=== PATIENT | male | born 1985 | race Caucasian/White ===

== ENCOUNTER 2025-03-14 21:17 | Emergency (ER) | payer OTHER, SELFPAY ==
--- OUTSIDE RECORDS SUMMARY | 2025-03-02 02:30 | XMS_ITS | Continuity of Care Document ---
Author Organization [facility] Address [address] [address] [place] [address] Phone Care Team Providers Care Beam Carrier Hauler Pusher Name Role Phone Martin Simms MD Unavailable Unavailable Allergies, Adverse Reactions, Alerts Substance Reaction Status Criticality Sulfa (Sulfonamide Antibiotics) HivesHives Active No Information Medications Medication Instructions Dosage Effective Dates (start - stop) Status Comments Adderall XR 30 mg capsule,extended release take 1 capsule by oral route every day in the morning upon awakening 30 MG - Active Pristiq 50 mg tablet,extended release take 1 tablet by oral route every day 50 MG - Active PROPRANOLOL HCL (unknown strength) take 1 tablet by oral route every day as needed Not Available - Active GABAPENTIN (unknown strength) take 1 capsule by oral route 3 times every day as needed Not Available - Active multivitamin tablet take 1 tablet by oral route every day 1 tablet - Active FISH OIL (unknown strength) take 1 capsule by oral route every day Not Available - Active Miralax 17 gram oral powder packet take 1 each by oral route every day 1 each - No Longer Active Procedures Procedure Date Offic/outpt E&m New Moderate Advance Directives Directive Yes / No Effective Date File Name No Information Encounters Encounter Description Practice Location Reason(s) For Visit Diagnoses Date Provider Providers Copied on Encounter Offic/outpt E&m New Moderate [facility], [address] [address], [place], [place], [id number], [place] tel:[phone] [facility] GI Symptoms or Concerns (chief complaint) Rectal bleedingChronic idiopathic constipation 5 Mendez Salazar. [address], [place], [place], [id number] , [place]. tel:[phone] Referring Provider: Referral Self, USE FOR SELF REFERRALS. [facility], [address] [address], [place], [place], [id number], [place] tel:[phone] [facility] No Information Jordy Rea. [address], [place], [place], [id number] , [place]. tel:[phone] Family History Family Member Type Diagnosis Age At Onset Brother Problem Asthma Father Problem Colon polyps Mother Problem Diabetes mellitus type 2 Father Problem Squamous cell carcinoma of S kin Mother Problem Colon polyps Brother Problem Alcoholism Immunizations Vaccine Date Status Comments tetanus toxoid, reduced diphtheria toxoid, and acellular pertussis vaccine, adsorbed administered Note: [facility] b i-directional interface ; Source: Other Registry SARS-COV-2 (COVID-19) vaccin e, mRNA, spike protein, LNP, preservative free, 100 mcg/0.5mL dose or 50 mcg/0.25mL dose administered Note: [facility] bi -directional interface ; Source: Other Registry Afluria Qd administered Note: [facility] bi-directional interface ; Source: Other Registry SARS-COV-2 (COVID-19) vaccin e, vector non-replicating, recombinant spike protein-Ad26, preservative free, 0.5 mL administered Note: [facility] bi- directional interface ; Source: Other Registry Afluria Qd administered Note: [facility] bi-directional interface ; Source: Other Registry Afluria Qd administered Note: [facility] bi-directional interface ; Source: Other Registry tetanus toxoid, reduced diphtheria toxoid, and acellular pertussis vaccine, adsorbed administered Note: [facility] b i-directional interface ; Source: Other Registry Influenza, split virus, trivalent, injectable, contains preservative administered Note: [facility] bi-direct ional interface ; Source: Other Registry Influenza, split virus, trivalent, injectable, contains preservative administered Note: [facility] bi-direct ional interface ; Source: Other Registry Influenza, split virus, trivalent, injectable, contains preservative administered Note: [facility] bi-direct ional interface ; Source: Other Registry Influenza, split virus, trivalent, injectable, contains preservative administered Note: [facility] bi-direct ional interface ; Source: Other Registry tetanus and diphtheria toxoi ds, adsorbed, preservative free, for adult use (5 Lf of tetanus toxoid and 2 Lf of diphtheria toxoid) administered Note: [facility] C bi- directional interface ; Source: Other Registry meningococcal polysaccharide vaccine (MPSV4) administered Note: [facility] bi-direct ional interface ; Source: Other Registry Influenza, split virus, trivalent, injectable, contains preservative administered Note: [facility] bi-direct ional interface ; Source: Other Registry Payers Payer name Insurance type Covered alliance party ID [place] douglas(s) [facility] [id number] Social History Type Description Quantity Date Captured Comments Alcohol Use Details Caffeine Use Details Unknown Tobacco Use Status Current non-smoker Smoking Status Never smoker Non-Smoking Tobacco Use Details : No Details Available : No Details Available Sex Male Vital Signs Date / Time: Height Weight BMI Pulse Rate Blood Pressure Temperature Respiratory Rate Body Surface Area Head Circumference Head Circ. Percentile Wt./Bill. Percentile BMI percentile Pulse Ox Inhaled Ox 8:33 AM 72.00 in 109.316 kg (241.00 lbs) 32.6 9 kg/m eter (2) 77 /min 114/75 mm[Hg] Chief Complaint And Reason For Visit From encounter dated 03/02/2025 08:30'. GI Symptoms or Concerns (chief complaint). Description: 39-year-old male with history of anxiety/depression, who presents for evaluation of constipation and rectal bleeding. He reports that he did have very severe constipation problem in the past which improved with probiotics. Currently he does have type IV stool per [place] stool chart most of the days except over the weekend he does not have bowel movements. Reports incomplete evacuation sensation all the time. Yesterday despite not having constipation, he noticed large amount of bright red blood per rectum and blood clots. This triggered him to schedule this appointment.He reports that he has been following a much healthier lifestyle wit h increasing physical activity, losing 40 pounds over the past year. He has been drinking adequate amount of water daily. He does not think that he is eating enough high-fiber diet. He has started Metamucil fiber supplement, 1 teaspoon daily however increasing that to 2 teaspoons daily was not tolerated.He did try a bowel cleanse in early January but despite that he did not feel complete evacuation.Appetite is normal and no constitutional symptoms.No family history of colorectal cancer. Reason For Referral Reason For Referral No Information History Of Present Illness Encounter Date Complaint History Of Prese nt Illness GI Symptoms or Concerns 39-year- old male with history of anxiety/depression, who presents for evaluation of constipation and rectal bleeding. He reports that he did have very severe constipation problem in the past which improved with probiotics. Currently he does have type IV stool per [place] stool chart most of the days except over the weekend he does not have bowel movements. Reports incomplete evacuation sensation all the time. Yesterday despite not having constipation, he noticed large amount of bright red blood per rectum and blood clots. This triggered him to schedule this appointment.He reports that he has been following a much healthier lifestyle with increasing physical activity, losing 40 pounds over the past year. He has been drinking adequate amount of water daily. He does not think that he is eating enough high-fiber diet. He has started Metamucil fiber supplement, 1 teaspoon daily however increasing that to 2 teaspoons daily was not tolerated.He did try a bowel cleanse in early January but despite that he did not feel complete evacuation.Appetite is normal and no constitutional symptoms.No family history of colorectal cancer. Functional Status Date Functional Assessmen t No Information Instructions Date Instruction Additional Infor tatyana It was nice to meet you Corky!I would recommend to continue with adequate water intake and physical activity.Switch Metamucil fiber to either Citrucel or Benefiber, 1 tablespoon with large glass of water daily.Start with high-fiber diet.Add MiraLAX laxative 1 capful daily. You might adjust the dose if needed to half capful and up to 1 capful twice daily if needed.We will refer you for a colonoscopy to assess for the source of rectal bleeding.With the above adjustment, if you continue to have problems with constipation and feeling incomplete evacuation, please schedule a follow-up and we will consider further adjustment of your bowel regimen.At the time of your follow-up with your primary care doctor next week, I would advise to have your thyroid checked and electrolytes (specifically to rule out hypercalcemia causing constipation), and to check for celiac disease (TTG IgA and total IgA). Related to Chronic idiopathic constipation High Fiber Diet Related to Chron ic idiopathic constipation Assessments Type Assessment Date assessment Rectal bleeding assessment Chronic idiopathic constipation impression 39-year-old male wit h chronic mild constipation, and couple episodes of rectal bleeding.In regards to his constipation, differential diagnosis include lifestyle related/diet related, chronic idiopathic constipation, IBS-C, less likely defecation disorder. In regards to rectal bleeding, most likely this is related to internal hemorrhoids however other etiologies such as colorectal lesions, inflammatory etiology, to be ruled out. Patient Care Teams Name Effective Dates (start - stop) Status Members No Information
--- OUTSIDE RECORDS SUMMARY | 2025-03-02 02:30 | XMS_ITS | Continuity of Care Document ---
Author Organization [facility] Address [address] [address] [place] [address] Phone Care Team Providers Care Nursery Hand Name Role Phone Martin Simms MD Unavailable [...] Moderate [facility], [address] [address], [place], [place], [id number], [place] tel:[phone] [facility] GI Symptoms or Concerns (chief complaint) Rectal bleedingChronic idiopathic constipation 5 Mendez Salazar. [address] [facility], [place], [place], [address] , [place]. tel:[phone] Referring Provider: Referral Self, USE FOR SELF REFERRALS. [facility], [address] [address], [place], [place], [address], [place] tel:[phone] [facility] No Information Jordy Rea. [address] [facility], [place], [place], [id number] , [place]. tel:[phone] Family History Family Member Type Diagnosis Age [...] Registry Payers Payer name Insurance type Covered republican ID Paola douglas(s) [facility] [id number] Social History Type Description Quantity Date Captured [...] he does have type IV stool per [place] stool chart most of the days except [...] he does have type IV stool per [place] stool chart most of the days except [...]
--- OUTSIDE RECORDS SUMMARY | 2025-03-14 21:18 | XMS_ITS | Clinical Summary ---
Author Organization [facility] Address [address] , [address] [place] [address] Phone Care Team Providers Care Solid Waste Disposal Manager Name Role Phone [facility] Unavailable Unava ilable Conditions or Problems Problem Name Problem Code Onset Date Status Entry Date Provider Comment Standard Description Annotate Leg weakness, bilateral 071778003 (SNOMED CT) Active Anirudh Valencia MD Paresis of lower extremity Leg pain, bilateral 72551325 (SNOMED CT) Active Anirudh Valencia MD Pain in lower limb Radicular syndrome of lower limbs 21267778 (SNOMED CT) Active Anirudh Valencia MD Radicular syndrome of lower limbs Medications No information available. Medications Administered No information available. Allergies, Adverse Reactions, Alerts No information available. Results Date Name Value Unit Range Flag Description Internal Other: Authorizatio n - OBS [email or web address] Yes Authoriza tion: Release of Information - Authorize [facility] - Payment and Healthcare Operations ROIAUTHOTHER Yes Authoriz ation: Release of Information - Authorize Others/Insurance - Payment and Healthcare Operations HIECONSENT Yes Consent To Release information to the Health Information Exchange (HIE) [email or web address] Yes Authorizat ion: Authorization for [facility] to leave messages, voicemail, send text messages, send emails AUTHRELHCARE Yes Authoriz ation: Release/Retrieval of Information to/from Healthcare Facilities, Pharmacy Benefit Payers and Providers [email or web address] Yes Authoriz ation: Notice of privacy practices AUTHBENEFIT Yes Authoriza tion: Assignment of Benefits and Payment Agreement Plan of Care No information available. Procedures Code Procedure Name Date Entry Date CPT-06293 Nerve Conduction 13 or more studies 10/28 CPT-89289 EMG with NCS (5+ muscles) - 2 limbs 10/28 Vital Signs No information available. Immunizations No information available. Advance Directives No information available.
--- OUTSIDE RECORDS SUMMARY | 2025-03-14 21:19 | XMS_ITS | Clinical Summary ---
Author Organization [facility] Address [address] [place] [id number] Care Team Providers Care Saloon Keeper Name Role Phone Saman Barraza MD Primary Care Provider Allergies Active Allergy Reactions Criticality Noted Date Comments Sulfa Antibiotics Rash Low 01/04/2025 Encounters Date Type Department Care Team Description 01/04/2025 2:13 PM CDT - 01/04/2025 6:[address] [facility] Emergency Dept [address] [place] [id number] Chris Mcnair MD Febrile illness, acute (Primary Dx) Discharge Disposition: Home or Self Care 01/04/2025 Travel from Last 3 Months Social History Tobacco Use Types Packs/Day Years Used Date Smoking Tobacco: Never Assessed Sex and Gender Information Value Date Recorded Sex Assigned at Not on file Legal Sex Male 3:22 AM [employer] Gender Identity Not on file Sexual Orientation Not on file Last Filed Vital Signs Vital Sign Reading Time Taken Comments Blood Pressure 140/90 01/04/2025 5:46 PM CDT Pulse 79 01/04/2025 5:46 PM CDT Temperature 36.7 C (98.1 F) 01/04/2025 11:46 AM CDT Respiratory Rate 16 01/04/2025 5:46 PM CDT Oxygen Saturation 100% 01/04/2025 5:46 PM CDT Inhaled Oxygen Concentration - - Weight 115.4 kg (254 lb 6.6 oz) 025 11:46 AM CDT Height 182.9 cm (6') 01/04/2025 11:46 AM CDT Body Mass Index 34.5 01/04/2025 11:46 AM CDT Plan of Treatment Health Maintenance Due Date Last Done Comments ADVANCE CARE PLANNING 1985 ANNUAL REVIEW OF HM ORDERS 1985 PHQ-2 (once per calendar year) 2024 COVID-19 VACCINE (3 - season) 2025 07/01/2021, 08/09/2020 INFLUENZA VACCINE (#1) 2025 , 03/07/2021, 01/28/2020, Additional history exists YEARLY PREVENTIVE VISIT 03/06/2026 03/06/20, 12/23/2021, 12/21/2020, Additional history exists DIABETES SCREENING 01/05/2028 01/04/2025 DTAP/TDAP/TD VACCINE (5 - Td or Tdap) 07/19/2034 07/19/2024, 03/11/2014, 02/13/2005, Additional history exists ZOSTER VACCINE (1 of 2) 08/04/2035 HEPATITIS B VACCINE Completed 04/18/1996, 12/02/1995, 10/13/1995 MENINGITIS VACCINE Aged Out 07/28/2003 No longer eligible based on patient's age to complete this topic HEPATITIS C SCREENING Completed 04/26/2013 HIV SCREENING Completed 04/26/2013 HPV VACCINE (No Doses Required) Completed PNEUMOCOCCAL VACCINE: PEDIATRICS (0 to 5 YEARS) AND AT-RISK PATIENTS (6 to 49 YEARS) Aged Out No longer eligible based on patient's age to complete this topic Procedures Procedure Name Priority Date/Time Associated Diagnosis Comments XR CHEST 2 VIEWS STAT 01/04/2025 4:46 PM CDT ROUTINE UA WITH MICROSCOPIC REFLEX TO CULTURE STAT 01/04/2025 4:32 PM CDT CBC WITH PLATELETS & DIFFERENTIAL STAT 01/04/2025 2:58 PM CDT GROUP A STREPTOCOCCUS PCR THROAT SWAB STAT 01/04/2025 2:58 PM CDT CBC WITH PLATELETS AND DIFFERENTIAL STAT 01/04/2025 2:58 PM CDT TICK-BORNE DISEASE PANEL (NON-LYME) BY PCR STAT 01/04/2025 2:58 PM CDT LYME DISEASE TOTAL ANTIBODIES WITH REFLEX TO CONFIRMATION STAT 01/04/2025 2:58 PM CDT COMPREHENSIVE METABOLIC PANEL (LIMITED OCCURRENCES) STAT 01/04/2025 2:58 PM CDT INFLUENZA A/B, RSV AND SARS-COV2 PCR STAT 01/04/2025 11:47 AM CDT from Last 3 Months Results * XR Chest 2 Views (01/04/2025 4:46 PM CDT) Anatomical Region Laterality Modality Chest Computed Radiogr aphy 01/04/2025 4:46 PM CDT Impressions 01/04/2025 5:00 PM CDT IMPRESSION: No cardiopulmonary abnormality. The lateral view shows mild midthoracic vertebral compression deformities which are unchanged since 2014. Narrative 01/04/2025 5:00 PM CDT EXAM: XR CHEST 2 VIEWS LOCATION: [facility] DATE: 01/04/2025 INDICATION: cough COMPARISON: Chest and rib x-ray February 13, 2024 and PA and lateral series June 09, 2014. Procedure Note Pavel Chinchilla MD - 01/04/2025 EXAM: XR CHEST 2 VIEWS LOCATION: [facility] DATE: 01/04/2025 INDICATION: cough COMPARISON: Chest and rib x-ray February 13, 2024 and PA and lateral seriesJan2014. IMPRESSION: No cardiopulmonary abnormality. The lateral view shows mildmidthoracic vertebral compression deformities which are unchanged [id number]. Chris Mcnair MD IMG DIAGNOSTIC IMAGING ORDERABLES Final Result * (ABNORMAL) UA with Microscopic reflex to Culture (01/04/2025 4:32 PM CDT) Color Urine Straw Colorless, Straw, Light Yellow, Yellow 01/04/2025 4:56 PM CDT [facility] Appearance Urine Clear Clear 01/05/20 4:56 PM CDT [facility] Glucose Urine Negative Negative mg/dL 01/04/2025 4:56 PM CDT [facility] Bilirubin Urine Negative Negative 4:56 PM CDT [facility] Ketones Urine Trace(A) Negative mg/dL 01/04/2025 4:56 PM CDT [facility] Specific [place] Urine 1.004 1.003 - 1.035 01/04/2025 4:56 PM CDT [facility] Blood Urine Negative Negative 01/04/2025 4:56 PM CDT [facility] pH Urine 6.0 5.0 - 7.0 01/04/2025 4:56 PM CDT [facility] Protein Albumin Urine Negative Negative mg/dL 01/04/2025 4:56 PM CDT [facility] Urobilinogen Urine Normal Normal mg/dL 01/04/2025 4:56 PM CDT [facility] Nitrite Urine Negative Negative 01/04/2025 4:56 PM CDT [facility] Leukocyte Esterase Urine Negative Negative 01/04/2025 4:56 PM CDT [facility] RBC Urine <1 <=2 /HPF 01/04/2025 4:56 PM CDT [facility] WBC Urine 0 <=5 /HPF 01/04/2025 4:56 PM CDT [facility] Urine URINE SPECIMEN OBTAINED BY CLEAN CATCH PROCEDURE / Unknown Non-blood Collection / Unknown 01/04/2025 4:32 PM CDT 01/04/2025 4:40 PM CDT Narrative [facility] - 01/04/2025 4:56 PM CDT Urine Culture not indicated us Chris Mcnair MD LAB - URINE ORDERABLES Final Result LABORATORY [facility] [address] Lab (1st floor, no room number) [place] [address], [facility] * Tick-Borne Disease Panel (Non-Lyme) by PCR (01/04/2025 2:58 PM CDT) Anaplasma phagocytophilum by PCR Not Detected Not Detected 01/05/2025 10:02 AM CDT [facility] Babesia species by PCR Not Detected Not Detected 01/05/2025 10:02 AM CDT [facility] Ehrlichia species by PCR Not Detected Not Detected 01/05/2025 10:02 AM CDT [facility] Blood BLOOD SPECIMEN / Unknown Venipuncture / Unknown 01/04/2025 2:58 PM CDT 01/04/2025 3:11 PM CDT Narrative [facility] - 01/05/2025 10:02 AM CDT This test was developed and its performance characteristics determined by the [facility] at [facility]. It has not been cleared or approved by the US Food and Drug Administration. This test was performed in a CLIA-certified laboratory and is intended for clinical purposes. A negative result does not rule out the presence of PCR inhibitors in the patient specimen or test-specific nucleic acid in concentrations below the level of detection by this test. us Chris Mcnair MD LAB - BLOOD ORDERABLES Final Result [facility] Inf. Diseases Diag. Lab [address] [facility], [address] [place] [phone] * CBC with platelets and differential (01/04/2025 2:58 PM CDT) WBC Count 9.17 4.00 - 11.00 10e3/uL 01/04/2025 4:04 PM CDT [facility] RBC Count 5.49 4.40 - 5.90 10e6/uL 01/04/2025 4:04 PM CDT [facility] Hemoglobin 16.6 13.3 - 17.7 g/dL 01/04/2025 4:04 PM CDT [facility] Hematocrit 45.9 40.0 - 53.0 % 01/04/2025 4:04 PM CDT [facility] MCV 83.6 78.0 - 100.0 fL 01/04/2025 4:04 PM CDT [facility] MCH 30.2 26.5 - 33.0 pg 01/04/2025 4:04 PM CDT [facility] MCHC 36.2 31.5 - 36.5 g/dL 01/04/2025 4:04 PM CDT [facility] RDW 11.9 10.0 - 15.0 % 01/04/2025 4:04 PM CDT [facility] Platelet Count 256 150 - 450 10e3/uL 01/04/2025 4:04 PM CDT [facility] % Neutrophils 71.4 % 01/04/2025 4:04 PM CDT [facility] % Lymphocytes 17.9 % 01/04/2025 4:04 PM CDT [facility] % Monocytes 9.9 % 01/04/2025 4:04 PM CDT [facility] % Eosinophils 0.1 % 01/04/2025 4:04 PM CDT [facility] % Basophils 0.4 % 01/04/2025 4:04 PM CDT [facility] % Immature Granulocytes 0.3 % 01/04/2025 4:04 PM CDT [facility] NRBCs per 100 WBC 0.0 <1.0 /100 025 4:04 PM CDT [facility] Absolute Neutrophils 6.54 1.60 - 8.30 10e3/uL 01/04/2025 4:04 PM CDT [facility] Absolute Lymphocytes 1.64 0.80 - 5.30 10e3/uL 01/04/2025 4:04 PM CDT [facility] Absolute Monocytes 0.91 0.00 - 1.30 10e3/uL 01/04/2025 4:04 PM CDT [facility] Absolute Eosinophils <0.03 0.00 - 0.70 10e3/uL 01/04/2025 4:04 PM CDT [facility] Absolute Basophils 0.04 0.00 - 0.20 10e3/uL 01/04/2025 4:04 PM CDT [facility] Absolute Immature Granulocytes 0.03 <=0.40 10e3/uL 01/04/2025 4:04 PM CDT [facility] Absolute NRBCs <0.03 10e3/uL 01/04/2025 4:04 PM CDT [facility] Blood BLOOD SPECIMEN / Unknown Venipuncture / Unknown 01/04/2025 2:58 PM CDT 01/04/2025 3:52 PM CDT us Chris Mcnair MD LAB - BLOOD ORDERABLES Final Result [facility] [address] Lab (1st floor, no room number) [place] [phone] * Group A Streptococcus PCR Throat Swab (01/04/2025 2:58 PM CDT) Pathologist [facility] Group A strep by PCR Not Detected Not Detected 01/04/2025 3:35 PM CDT LABORATORY Swab STRUCTURE OF ANTERIOR REGION OF NECK / Unknown Non-blood Collection / Unknown 01/04/2025 2:58 PM CDT 01/04/2025 3:03 PM CDT [facility] LABORATORY - 01/04/2025 3:35 PM CDT The Xpert Xpress Strep A test, performed on the [employer], is a rapid, qualitative in vitro diagnostic test for the detection of Streptococcus pyogenes (Group A -hemolytic Streptococcus, Strep A) in throat swab specimens from patients with signs and symptoms of pharyngitis. The Xpert Xpress Strep A test can be used as an aid in the diagnosis of Group A Streptococcal pharyngitis. The assay is not intended to monitor treatment for Group A Streptococcus infections. The Xpert Xpress Strep A test utilizes an automated real-time polymerase chain reaction (PCR) to detect Streptococcus pyogenes DNA. us Chris Mcnair MD LAB - MICRO GENERAL ORD ERABLES Final Result [facility] [address] [facility] Lab (1st floor, no room number) [place] [phone] * Comprehensive Metabolic Panel (Limited Occurrences) (01/04/2025 2:58 PM CDT) Pathologist [facility] Sodium 136 135 - 145 mmol/L 01/04/2025 3:30 PM CDT LABORATORY Potassium 4.3 3.4 - 5.3 mmol/L 01/04/2025 3:30 PM CDT LABORATORY Carbon Dioxide (CO2) 23 22 - 29 mmol/L 01/04/2025 3:30 PM CDT LABORATORY Anion Gap 11 7 - 15 mmol/L 01/04/2025 3:30 PM CDT LABORATORY Urea Nitrogen 13.1 6.0 - 20.0 mg/dL 01/04/2025 3:30 PM CDT LABORATORY Creatinine 1.11 0.67 - 1.17 mg/dL 01/04/2025 3:30 PM CDT [facility] GFR Estimate 87 >60 mL/min/1.7 3m2 01/04/2025 3:30 PM CDT LABORATORY Comment:eGFR calculated us2020 CKD-EPI equation. Calcium 9.0 8.8 - 10.4 mg/dL 01/04/2025 3:30 PM CDT LABORATORY Chloride 102 98 - 107 mmol/L 01/04/2025 3:30 PM CDT LABORATORY Glucose 93 70 - 99 mg/dL 01/04/2025 3:30 PM CDT [facility] Alkaline Phosphatase 53 40 - 150 U/L 01/04/2025 3:30 PM CDT LABORATORY AST 25 0 - 45 U/L 01/04/2025 3:30 PM CDT LABORATORY ALT 38 0 - 70 U/L 01/04/2025 3:30 PM CDT LABORATORY Protein Total 7.3 6.4 - 8.3 g/dL 01/04/2025 3:30 PM CDT LABORATORY Albumin 4.5 3.5 - 5.2 g/dL 01/04/2025 3:30 PM CDT LABORATORY Bilirubin Total 0.7 <=1.2 mg/dL 01/04/2025 3:30 PM CDT LABORATORY Blood BLOOD SPECIMEN / Unknown Venipuncture / Unknown 01/04/2025 2:58 PM CDT 01/04/2025 3:03 PM CDT us Chris Mcnair MD LAB - BLOOD ORDERABLES Final Result LABORATORY [facility] [address] Lab (1st floor, no room number) [place] [address], [facility] * Lyme Disease Total Antibodies with Reflex to Confirmation (01/04/2025 2:58 PM CDT) Lyme Disease Antibodies Total 0.10 <0.90 01/05/2025 11:16 AM CDT SPECIALTY CORE/PROT/ENDO Comment:Non-reactive, Absenc e of detectable Borrelia burgdorferi antibodies. A non-reactive result does not exclude the possibility of Borrelia burgdorferi infection. If early Lyme disease is suspected, a second sample should be collected and tested 2 to 4 weeks later. Blood BLOOD SPECIMEN / Unknown Venipuncture / Unknown 01/04/2025 2:58 PM CDT 01/04/2025 3:03 PM CDT us Chris Mcnair MD LAB - BLOOD ORDERABLES Final Result [facility]PROT[facility]Prot[facility]End[facility] [address] [facility] [address] Building, Room [phone] * Influenza A/B, RSV and SARS-CoV2 PCR (COVID-19) Nasopharyngeal (01/04/2025 11:47 AM CDT) [facility] Influenza A PCR Negative Negative 01/04/2025 1:47 PM CDT LABORATORY Influenza B PCR Negative Negative 01/04/2025 1:47 PM CDT LABORATORY RSV PCR Negative Negative 01/04/2025 1:47 PM CDT [facility] SARS CoV2 PCR Negative Negative 01/04/2025 1:47 PM CDT [facility] Comment:NEGATIVE: SARS-CoV-2 (COVID-19) RNA not detected, presumed negative. Swab NASOPHARYNGEAL STRUCTURE / Unknown Non-blood Collection / Unknown 01/04/2025 11:47 AM CDT 01/04/2025 12:18 PM CDT [facility] LABORATORY - 01/04/2025 1:47 PM CDT Testing was performed using the Xpert Xpress CoV2/Flu/RSV Assay on the [employer] GeneXpert Instrument. This test should be ordered for the detection of SARS- CoV2, influenza, and RSV viruses in individuals with signs and symptoms of respiratory tract infection. This test is for in vitro diagnostic use under the [place] FDA for laboratories certified under CLIA to perform high or moderate complexity testing. This test has been [place] FDA cleared. A negative result does not rule out the presence of PCR inhibitors in the specimen or target RNA in concentration below the limit of detection for the assay. If only one viral target is positive but coinfection with multiple targets is suspected, the sample should be re-tested with another FDA cleared, approved, or authorized test, if coninfection would change clinical management. This test was validated by the [facility]. These laboratories are certified under the Clinical Laboratory Improvement Amendments of 1988 (CLIA-88) as qualified to perfom high complexity laboratory testing. Chris Mcnair MD LAB - MICRO GENERAL ORD ERABLES Final Result [facility] [address] [facility] Lab (1st floor, no room number) [place] [address], [facility] from Last 3 Months Insurance [facility] [employer] Care Teams Saloon Keeper Relationship Specialty [place] [id number] [place] [address] PCP - General 01/04/25
--- OUTSIDE RECORDS SUMMARY | 2025-03-14 21:19 | XMS_ITS | Clinical Summary ---
Author Organization [facility] Address [address] [place] [id number] Care Team Providers Care Roll Skinner Name Role Phone Saman Barraza MD Primary Care Provider Willie Muñoz Unavailable [phone] Allergies Active Allergy Reactions Criticality Noted Date Comments Sulfa (Sulfonamide Antibiotics) Hives 01/10 Medications gabapentin (NEURONTIN) 300 mg capsule Take 300 mg by mouth 2 times daily. 1 Active durable medical equipment (DME)Indications :Chronic right-sided back pain, unspecified back location home cervical traction unit that provides greater than 20lbs of pull/force 1 Each 2 Active Pristiq 50 mg Extended-Release tablet Take 50 mg by mouth once daily in the morning. 5 Active Adderall XR 15 mg Extended-Release capsule Take 15 mg by mouth 2 times daily at 7 AM and Noon. 5 Active CPAPIndications: ASHLEY on CPAP CPAP, heated humidifier, mask, headgear, filters and tubing. For home use. Pressure: 9cmH2O Length of Need: 99 1 Each 5 Active Auvelity 45-105 mg tablet TAKE 1 TABLET BY MOUTH 2 TIMES A DAY* 4 03/06/20 25 Discontinu ed(*Med complete/R egimen complete/L evel of care change) CPAPIndications: ASHLEY on CPAP CPAP, heated humidifier, mask, headgear, filters and tubing. For home use. Pressure: 9cmH2O Length of Need: 99 1 Each 4 03/14/20 Discontinu ed(Reorder (E-cancel not sent)) busPIRone (BUSPAR) 10 mg tablet Take 1 Tablet by mouth two times daily. 5 03/06/20 Discontinu ed(*Med complete/R egimen complete/L evel of care change) Active Problems Problem Noted Date Diagnosed Date Obesity (BMI 30.0-34.9) 07/19/2024 Palpitations 07/19/2024 Neck pain, chronic 10/21/2023 Insomnia, idiopathic 01/07/2023 Low testosterone 12/23/2021 Chronic back pain 07/03/2021 ASHLEY on CPAP 04/04/2016 Overview (12/28/2019): Heavy snoring ADHD, predominantly inattentive type 09/12/2008 Social phobia 02/20/2008 Major depressive disorder, recurrent episode, mo derate 02/20/2008 Overview (10/10/2020): Isaura morales at [facility] Obsessive compulsive disorder 01/29/2006 Resolved Problems Problem Noted Date Diagnosed Date Resolved Date Elevated blood pressure read ing without diagnosis of hypertension 07/19/2024 03/06/2025 Encounters Date Type Department Care Team Description 03/08/2025 Orders Only [address] [address] Saman Barraza MD 1 scan: (1-Ord) 03/06/2025 03/06/2025 3:45 PM CDT Office Visit [address] [address] Saman Barraza MD Sinus Problem; Physical (Non fasting/); Immunization/Injectio n 03/05/2025 Travel 02/17/2025 Nurse Triage [address] [address] Saman Barraza MD Chest Pain/problem 01/04/2025 Nurse Triage [address] [address] Saman Barraza MD Headache from Last 3 Months Immunizations Immunization Administration Dates Next Due AMB Influenza, IIV3 (Age >=3 years)(Flu Clinic Only) 03/17/2008 COVID-19 vaccine (Moderna Taurus annalise 50mcg/0.25mL) PF, MDV 07/01/2021 Hepatitis B (Peds) 04/18/1996,12/02/1995, 996 INFLUENZA, IIV3 PF (AGE >= 6 MO) 03/06/2025,07/09 Influenza, IIV3 (Age >=3 years) 02/08/20 19,03/30/2014,03/09/2007,03/18 Influenza, IIV4 03/07/2021,01/28/2020,05/18/2017 MMR 11/15/1996,10/31/1986 Meningococcal Vaccine (Menomune) 07/28/2003 Td (Age >=7 Years) 02/13/2005,11/15/1996 Tdap 07/19/2024,03/11/2014 Family History Medical History Relation Name Comments Allergies Brother CJ Asthma Brother CJ Cancer Father skin cancer Good Health Father Hypertension Father Alcohol/Drug Maternal Grandfather Alcohol/Drug Maternal Grandmother Diabetes Mother Hypertension Mother Psychiatric illness Mother depressi on/worrier Alcohol/Drug Paternal Grandfather Alcohol/Drug Paternal Grandmother Relation Name Status Comments Brother CJ Father Maternal Grandfather Maternal Grandmother Mother Paternal Grandfather Paternal Grandmother Social History Tobacco Use Types Packs/Day Years Used Date Smoking Tobacco: Never Smokeless Tobacco: Never Tobacco Cessation:Counseling Given: Yes Alcohol Use Standard Drinks/Week Comments Yes 0 (1 standard drink = 0.6 oz pur e alcohol) occ PHQ-2 Answer Date Recorded PHQ-2 TOTAL SCORE 2 03/06/2025 Social Connections Answer Date Recorded Do you often feel lonely or isolated from those around you? 0 07/19/2024 Alcohol Use Answer Date Recorded How often do you have a drink containing alcohol ? 1 03/06/2025 How many drinks containing a lcohol do you have on a typical day when you are drinking? 0 03/06/2025 How often do you have five or more drinks on one occasion? 0 03/06/2025 Financial Resource Strain Answer Date R ecorded Difficulty of Paying Living Expenses 3 07/19/2024 Difficulty of Paying Living Expenses Not on file 07/19/2024 Food Insecurity Answer Date Recorded Do you worry your food will run out before you are able to buy more? 1 07/19/2024 Transportation Needs Answer Date Record ed Does lack of transportation keep you from medica l appointments? 1 07/19/2024 Does lack of transportation keep you from work, meetings or getting things that you need? 1 07/19/2024 Housing Stability Answer Date Recorded What is your housing situation today? 1 07/19/2024 Utilities Answer Date Recorded Do you have trouble paying f or utilities (for example, heat, electricity, water, phone)? 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 Gender Identity Not on file Sexual Orientation Not on file Obstetrics History Last Filed Vital Signs Vital Sign Reading Time Taken Comments Blood Pressure 110/60 03/06/2025 3:42 PM CDT Pulse 68 03/06/2025 3:42 PM CDT Temperature 36.9 C (98.4 F) 03/06/2025 3:42 PM CDT Respiratory Rate 22 02/13/2024 2:51 PM CDT Oxygen Saturation 99% 07/19/2024 8:05 AM CDT Inhaled Oxygen Concentration - - Weight 106.1 kg (234 lb) 03/06/2025 3:42 PM CDT Height 182.9 cm (6') 03/06/2025 3:42 PM CDT Body Mass Index 31.74 03/06/2025 3:42 PM CDT Plan of Treatment Health Maintenance Due Date Last Done Comments HPV series for age 9-45 (1 - 3-dose SCDM series) 2012 BMI (ht and wt on same day) for age 18+ 03/06/2026 03/06/2025, 09/16/2023, 01/31/2022, Additional history exists Depression screening for age 12+ 03/06/2026 03/06/2025, 01/07/2023, 12/23/2021, Additional history exists Lipids for age 35-44 03/06/2030 03/06/2025, 01/07/2023, 12/23/2021, Additional history exists Tetanus booster 07/19/2034 07/19/2024, 11/0 05/2013, 02/13/2005, Additional history exists RSV vaccine for adults or (1 - 1-dose 75+ series) 2060 Hepatitis B series for 19+ Completed 04/18, 12/02/1995, 10/13/1995 HIV for age 15-65 Completed 04/26/2013 Hepatitis C screening for age 18-79 Completed 04/26/2013 Influenza Vaccine Completed 03/06/2025, , 03/07/2021, Additional history exists Pneumococcal series for age 6-49 Aged Out No longer eligible based on patient's age to complete this topic Procedures Procedure Name Priority Date/Time Associated Diagnosis Comments TESTOSTERONE,TOTAL Routine 03/06/2025 4: 40 PM CDT Low testosterone LIPID PANEL W REFLEX MEASURED LDL Routine 03/06/2025 4:40 PM CDT Lipid screening COMP METABOLIC PANEL Routine 03/06/2025 4:40 PM CDT Obesity (BMI 30.0-34.9) Diabetes mellitus screening EKG 12 LEAD Routine 03/06/2025 12:00 AM CDT Atypical chest pain ANTI HIV 1/2 Routine 04/26/2013 11:28 AM STROBOROMA OPERATOR Contact with or exposure to other viral diseases(V01.79) ANTI HCV Routine 04/26/2013 11:28 AM STROBOROMA OPERATOR Contact with or exposure to other viral diseases(V01.79) from Last 3 Months or Most Recently Relevant to Health Maintenance Results * (ABNORMAL) LIPID PANEL W REFLEX MEASURED LDL (03/06/2025 4:40 PM CDT) CHOLESTEROL, TOTAL 167 <200 mg/dL 03/07/2025 4:33 AM CDT [facility] TRIGLYCERIDES 55 <150 mg/dL 03/07/2025 4:33 AM CDT [facility] HDL CHOLESTEROL 49 > OR = 40 mg/dL 03/07/2025 4:33 AM CDT [facility] NON HDL CHOLESTEROL 118 <130 mg/dL (calc) 03/07/2025 4:33 AM CDT [facility] Comment: For patients with diabetes plus 1 major ASCVD risk factor, treating to a non-HDL-C goal of <100 mg/dL (LDL-C of <70 mg/dL) is considered a therapeutic option. CHOL/HDLC RATIO 3.4 <5.0 (calc) 03/07/2025 4:33 AM CDT [facility] LDL-CHOLESTEROL 104(H) mg/dL (calc) 03/07/2025 4:33 AM CDT [facility] Comment: Reference range: <100 Desirable range <100 mg/dL for primary prevention; <70 mg/dL for patients with CHD or diabetic patients with > or = 2 CHD risk factors. LDL-C is now calculated using the Praveena calculation, which is a validated novel method providing better accuracy than the Friedewald equation in the estimation of LDL-C. Frederick JONES et al. LEODAN. 2013;310(19): 2732-6071 (http://education.Artify It.Vertro/faq/AYR663) Blood BLOOD SPECIMEN / Unknown [facility] / Unknown 03/06/2025 4:40 PM CDT 03/06/2025 4:40 PM CDT Saman Barraza MD CHEMISTRY Final R esult [facility] [address] [address], * TESTOSTERONE,TOTAL (03/06/2025 4:40 PM CDT) [facility] TESTOSTERONE, TOTAL, MS 496 250 - 1100 ng/dL 03/09/2025 11:10 AM CDT [facility] Comment: For additional information, please refer to https://education.Profitek/faq/TotalTestosteroneLCMSMS (This link is being provided for informational/educational purposes only.) (Note) This test was developed and its analytical performance characteristics have been determined by [facility]. It has not been cleared or approved by the FDA. This assay has been validated pursuant to the CLIA regulations and is used for clinical purposes. [facility] [address] [facility] [address] [facility] [address] Mary Carmen Bello MD, PhD Blood BLOOD SPECIMEN / Unknown [facility] / Unknown 03/06/2025 4:40 PM CDT 03/06/2025 4:40 PM CDT Saman Barraza MD CHEMISTRY Final R esult [facility] [address] [place] [address], * COMP METABOLIC PANEL (03/06/2025 4:40 PM CDT) SODIUM 138 135 - 146 mmol/L 03/07/2025 4:27 AM CDT [facility] POTASSIUM 4.5 3.5 - 5.3 mmol/L 03/07/2025 4:27 AM CDT [facility] CHLORIDE 103 98 - 110 mmol/L 03/07/2025 4:27 AM CDT [facility] CARBON DIOXIDE 25 20 - 32 mmol/L 03/07/2025 4:27 AM CDT [facility] GLUCOSE 83 65 - 99 mg/dL 03/07/2025 4:27 AM CDT [facility] Comment: Fasting reference interval CALCIUM 9.6 8.6 - 10.3 mg/dL 03/07/2025 4:27 AM CDT [facility] CREATININE 1.08 0.60 - 1.26 mg/dL 03/07/2025 4:27 AM CDT [facility] BUN/CREATININE RATIO SEE NOTE: 6 - 22 (calc) 03/07/2025 4:27 AM CDT [facility] Comment: Not Reported: BUN and Creatinine are within reference range. EGFR 90 > OR = 60 mL/min/1. 73m2 03/07/2025 4:27 AM CDT [facility] ALBUMIN 4.7 3.6 - 5.1 g/dL 03/07/2025 4:27 AM CDT [facility] PROTEIN, TOTAL 7.1 6.1 - 8.1 g/dL 03/07/2025 4:27 AM CDT [facility] BILIRUBIN, TOTAL 0.8 0.2 - 1.2 mg/dL 03/07/2025 4:27 AM CDT [facility] ALKALINE PHOSPHATASE 55 36 - 130 U/L 03/07/2025 4:27 AM CDT [facility] ALT 22 9 - 46 U/L 03/07/2025 4:27 AM CDT [facility] AST 21 10 - 40 U/L 03/07/2025 4:27 AM CDT [facility] UREA NITROGEN (BUN) 12 7 - 25 mg/dL 03/07/2025 4:27 AM CDT [facility] GLOBULIN 2.4 1.9 - 3.7 g/dL (calc) 03/07/2025 4:27 AM CDT [facility] ALBUMIN/GLOBULI N RATIO 2.0 1.0 - 2.5 (calc) 03/07/2025 4:27 AM CDT [facility] Blood BLOOD SPECIMEN / Unknown [facility] / Unknown 03/06/2025 4:40 PM CDT 03/06/2025 4:40 PM CDT Saman Barraza MD CHEMISTRY Final R esult [facility] [address] [address], * EKG 12 LEAD (03/06/2025 12:00 AM CDT) Saman Barraza MD EKG ORD Final R esult * ANTI HCV (04/26/2013 11:28 AM STROBOROMA OPERATOR) ANTI HCV Non-reacti ve [facility] Blood specimen (specimen) BLOOD SPECIMEN / Unknown 04/26/2013 11:28 AM STROBOROMA OPERATOR 04/26/2013 11:18 AM STROBOROMA OPERATOR Chuck Wang MD SEND OUTS Final Re sult [facility] [place] [address] [place] [id number] * ANTI HIV 1/2 (04/26/2013 11:28 AM STROBOROMA OPERATOR) ANTI HIV 1/2 Non-reacti ve [facility] Blood specimen (specimen) BLOOD SPECIMEN / Unknown 04/26/2013 11:28 AM STROBOROMA OPERATOR 04/26/2013 11:18 AM STROBOROMA OPERATOR us Chuck Wang MD SEND OUTS Final Re sult [facility] [place]NAL [address] [place] [id number] from Last 3 Months or Most Recently Relevant to [place] [address] Care Teams Roll Skinner Relationship Specialty [place] [address] [place] [address] PCP - General Family Practice 12/28/19 Willie Muñoz PA [address] [facility] [address] [place] [address] Pulmonology Physician Buckle Assembler 10/23/14
[2025-03-14 21:27] VITALS: BP 144/90; PULSE 89; RESP 18; TEMP 36.9; O2SAT 99; BMI 31.2
--- NOTE | 2025-03-14 22:31 | ED.SKABFB ---
HPI - Skin/Abscess/Foreign Bdy General Time Seen by Provider: 22:32 Date Seen: 03/14/25 Chief complaint: Skin/Abscess/Foreign Body Stated complaint: skin infection on arm Time Seen by Provider: 03/14/25 22:31 Source: patient Mode of arrival: ambulatory History of Present Illness HPI narrative: Mohan is a 39 yo male who presents to the ED for evaluation of left arm pain/redness. Patient reports that he developed pain and some mild erythema and warmth to an area to his left upper extremity inner elbow/proximal forearm last . Patient reports that he initially thought he just hit the area while lifting weights last . Patient states that last night he noticed that it was just the skin that was irritated, not the muscles or the bony joint. Patient went to urgent care and was started on Augmentin for sinus infection as well as concern for cellulitis. Patient states he has taken 3 doses of Augmentin however noticed today he has had increase in redness in streaking of redness down his forearm distally. Patient denies any fever, chills, nausea vomiting, weakness, paresthesias, denies any other illness or complaints, no history of prior cellulitis, denies any substance use, no history of IV drug abuse. Related Data Home Medications ?Medication ?Instructions ?Recorded ?Confirmed gabapentin 300 mg capsule 600 mg PO BID 12/22/22 03/14/25 desvenlafaxine succinate 50 mg 50 mg PO DAILY 03/14/25 03/14/25 tablet,extended release 24 hr dextroamphetamine-amphetamine ER 1 cap PO BID 03/14/25 03/14/25 15 mg 24hr capsule,extend release propranolol 10 mg tablet 10 - 20 mg PO BID PRN 03/14/25 03/14/25 Previous Rx's ?Medication ?Instructions ?Recorded amoxicillin 875 mg-potassium 1 tab PO BID 10 days #20 tabs 03/13/25 clavulanate 125 mg tablet Allergies Allergy/AdvReac Type Severity Reaction Status Date / Time Sulfa (Sulfonamide Allergy Unknown Verified 03/14/25 21:29 Antibiotics) Review of Systems Narrative: Past medical history, past surgical history, medications, allergies, family history, and social history were reviewed with the patient. No additional pertinent items. A medically appropriate review of systems was performed with pertinent positives and negatives noted in HPI, all other systems negative. PFSH PFSH Social History Smoking Status: Never smoker Second hand tobacco smoke exposure: No How often do you have a drink containing alcohol: never AUDIT-C Alcohol total score: 0 Non-prescribed substance use: denies use Exam Narrative: Exam Narrative: General: Afebrile, no acute distress HEENT: Normocephalic, atraumatic, conjunctiva normal. MMM Neck: non-tender, supple Cardio: regular rate. regular rhythm Resp: Normal work of breathing, no respiratory distress, lungs clear bilaterally, no wheezing, rhonchi, rales Chest/Back: no visual signs of trauma, no midline tenderness, no CVA tenderness Abdomen: soft, non distension, no tenderness, no peritoneal signs Neuro: alert and fully oriented. CN II-XII grossly intact. Grossly normal strength and sensation in all extremities. MSK: left upper extremity with area on inner aspect of proximal forearm near elbow with mild erythema, +TTP and streaking of erythema distally towards mid forearm, distally NVI, radial pulse present b/l, no TTP elbow joint, full ROM at shoulder, elbow, wrist, cap refill < 3 seconds. Integumentary/Skin: no rash visualized, normal color Psych: normal affect, normal behavior Const: Vital Signs, click to edit/add: Vital Signs - 24 hr 03/14/25 21:27 03/14/25 23:09 03/14/25 23:31 Temperature 98.5 F 98.5 F Pulse Rate 64 Pulse Rate [Right Pulse Oximeter] 89 Respiratory Rate 18 18 Blood Pressure 110/73 Blood Pressure [Ri ght Upper Arm] 144/90 H Pulse Oximetry 99 99 97 Oxygen Delivery Me thod Room Air Course Vital Signs Vital signs: Initial Vital Signs Temperature 98.5 F 03/14/25 21:27 Temperature Source Temporal Artery Scan 03/14/25 21:27 Pulse Rate 89 03/14/25 21:27 Respiratory Rate 18 03/14/25 21:27 Blood Pressure 144/90 H 03/14/25 21:27 Blood Pressure Mean 108 H 03/14/25 21:27 Blood Pressure Position Sitting 03/14/25 21:27 Pulse Oximetry 99 03/14/25 21:27 Oxygen Delivery Method Room Air 03/14/25 21:27 Vital Signs Temperature 98.5 F 03/14/25 21:27 Pulse Rate 89 03/14/25 21:27 Respiratory Rate 18 03/14/25 21:27 Blood Pressure 144/90 H 03/14/25 21:27 Pulse Oximetry 99 03/14/25 21:27 Oxygen Delivery Method Room Air 03/14/25 21:27 Temperature 98.5 F 03/14/25 23:31 Pulse Rate 64 03/14/25 23:31 Respiratory Rate 18 03/14/25 23:31 Blood Pressure 110/73 03/14/25 23:31 Pulse Oximetry 97 03/14/25 23:31 Oxygen Delivery Method Room Air 03/14/25 21:27 Medications Administered Medications: Discontinued Medications Generic Name Dose Route Start Last Admin Trade Name Freq PRN Reason Stop Dose Admin Ceftriaxone Sodium 1 gm/ 100 mls @ 200 mls/hr 03/14/25 22:43 03/14/25 23:31 Sodium Chloride IVPB 03/14/25 22:44 Infused ONCE ONE Infusion MDM - Skin/Abscess/Foreign Bdy MDM Narrative Medical decision making narrative: Mohan is a 39 yo male who presents to the ED for evaluation of left arm pain/redness. Upon arrival patient is nontoxic appearing, afebrile, no distress. Patient hemodynamically stable, blood pressure slightly elevated but otherwise vital signs within normal limits. Concern for worsening cellulitis. Patient recently started on antibiotics last night. Given streaking, will give a dose of IV Rocephin, obtain comprehensive labs, blood cultures, and re-evaluate. No evidence of fluctuance or drainable abscess. Patient treated with IV Toradol for pain/inflammation. Reviewed patient's urgent care visit on 03/13/2025. Comprehensive labs with no leukocytosis white blood cell count 6.9, hemoglobin 15.1, no acute metabolic or electrolyte abnormality, normal CRP 0.7. On re-evaluation patient continues to be resting comfortably, no distress. I discussed results with patient, this could be cellulitis however also could be superficial phlebitis or superficial thrombophlebitis. Considered admission however patient is nontoxic appearing, hemodynamically stable, laboratory testing reassuring. I discussed with patient and with shared decision making recommend continuation of the antibiotics, however also recommend warm compresses, Tylenol, ibuprofen, and close outpatient follow-up. Area of erythema was marked. Patient feels comfortable with discharge home with close outpatient follow-up, continue supportive care, antibiotics, close outpatient follow-up, strict return precautions discussed. Patient understands and agrees the plan. Medical Records Attestation: I reviewed the patient's medical records. Lab Data Attestation: I reviewed the patient's lab results. Labs: Lab Results 03/14/25 Range/Units 22:45 WBC 6.90 (4.50-11.00) K/uL RBC 5.02 (4.30-5.90) m/uL Hgb 15.1 (13.5-17.5) gm/dL Hct 43.3 (37.0-53.0) % MCV 86 (80-100) fL MCH 30 (26-34) pg MCHC 35 (32-36) gm/dL RDW Coeff of Janna 11.8 (11.5-15.5) % Plt Count 242 (140-440) K/uL Neut % (Auto) 54.2 (42.0-72.0) % Lymph % (Auto) 30.9 (20-44) % Nance % (Auto) 10.4 (0.0-11.0) % Eos % (Auto) 3.5 (0.0-7.0) % Baso % (Auto) 0.4 (0.0-3.0) % Neut # (Auto) 3.74 (1.7-7.0) K/uL Lymph # (Auto) 2.13 (0.90-2.90) K/uL Nance # (Auto) 0.70 (0.00-0.90) K/UL Eos # (Auto) 0.24 (0.00-0.50) K/uL Baso # (Auto) 0.03 (0.00-0.30) K/uL Abs Immat Gran (auto) 0.04 (0.00-0.30) K/uL Imm/Tot Granulo (auto) 0.6 % Sodium 138 (135-149) mmol/L Potassium 4.1 (3.6-5.1) mmol/L Chloride 105 (96-114) mmol/L Carbon Dioxide 26 (20-32) mmol/L Anion Gap 7 (7-15) mEq/L BUN 16 (5-24) mg/dL Creatinine 1.0 (0.5-1.5) mg/dL Estimated Creat Clear 108.86 Estimated GFR 98 ml/min Glucose 90 (60-115) mg/dL Calcium 8.7 (8.4-10.6) mg/dL Total Bilirubin 0.5 (0.1-1.5) mg/dL AST 49 H (12-35) U/L ALT 38 (4-50) U/L Alkaline Phosphatase 49 (40-150) U/L C-Reactive Protein 0.7 (0.5-1.0) mg/dL Total Protein 6.9 (6.0-8.3) g/dL Albumin 4.3 (3.3-5.0) g/dL Discharge Plan Discharge Clinical Impression: Left forearm pain Patient Disposition: Home, Self-Care Condition: Stable Instructions: Cellulitis (ED), Phlebitis (ED) Additional Instructions: Please follow-up with your primary care provider in the next 3-5 days for further evaluation and follow-up. Please call to schedule appointment. Please continue antibiotics twice daily as directed. Please alternate taking Tylenol 1000 mg and ibuprofen 600 mg every 6 hours as needed for pain, swelling. Please apply warm compresses to the area. Please continue to monitor symptoms. Return to the emergency department should you develop persistent high fever, severe worsening pain, redness, swelling, or any worsening symptoms. It was a pleasure taking care of you today. We hope you feel better soon. Prescriptions: No Action amoxicillin-pot clavulanate 875-125 mg tablet 1 tab PO BID 10 Days Qty: 20 0RF gabapentin 300 mg capsule 600 mg PO BID propranolol 10 mg tablet 10 - 20 mg PO BID PRN dextroamphetamine-amphetamine 15 mg capsule,extended release 24hr 1 cap PO BID desvenlafaxine succinate 50 mg tablet extended release 24 hr 50 mg PO DAILY Follow Up/Referrals: Provider,Not a Local [Primary Care Provider, Family Practice] Stand Alone Forms: [employer] Info Instructions
[2025-03-14] MEDS: cefTRIAXone 1 GM in 0.9 % SODIUM CHLORIDE Mini-bag 100 ML IVPB (22:45)
--- OUTSIDE RECORDS SUMMARY | 2025-03-14 22:51 | XMS_ITS | Clinical Summary ---
Author Organization [facility] Address [address] , [address] [place] [address] Phone Care Team Providers Care Label Printer Name Role Phone [facility] Unavailable Unava ilable Conditions or Problems Problem Name Problem Code Onset Date Status Entry Date Provider Comment Standard Description Annotate Leg weakness, bilateral 781996365 (SNOMED CT) Active Anirudh Valencia MD Paresis of lower extremity Leg pain, bilateral 89699984 (SNOMED CT) Active Anirudh Valencia MD Pain in lower limb Radicular syndrome of lower limbs 70265893 (SNOMED CT) Active Anirudh Valencia MD Radicular [...] Procedures Code Procedure Name Date Entry Date CPT-49099 Nerve Conduction 13 or more studies 10/28 CPT-92603 EMG with NCS (5+ muscles) - 2 limbs 10/28 Vital Signs No information available. Immunizations No information available. Advance Directives No information available.
[2025-03-14 22:57] LABS: Hematocrit* 43.3 % (37.0-53.0); Hemoglobin* 15.1 gm/dL (13.5-17.5); Immature Granulocytes Abs Auto 0.04 K/uL (0.00-0.30); Immature Granulocytes Pct Auto 0.6 %; Lymphocytes Absolute Auto 2.13 K/uL (0.90-2.90); Mean Corpuscular HGB Conc 35 gm/dL (32-36); Mean Corpuscular Hemoglobin 30 pg (26-34); Mean Corpuscular Volume 86 fL (80-100); RDW Coefficient of Variation % 11.8 % (11.5-15.5); Red Blood Count* 5.02 m/uL (4.30-5.90); Slide Review Reflex No; White Blood Count* 6.90 K/uL (4.50-11.00)
[2025-03-14 23:09] VITALS: O2SAT 99
[2025-03-14 23:12] LABS: Albumin* 4.3 g/dL (3.3-5.0); Chloride* 105 mmol/L (96-114); Sodium* 138 mmol/L (135-149)
[2025-03-14 23:13] LABS: Potassium* 4.1 mmol/L (3.6-5.1)
[2025-03-14 23:15] LABS: Alanine Aminotransferase* 38 U/L (4-50); Aspartate Amino Transferase* 49 U/L (12-35); Blood Urea Nitrogen* 16 mg/dL (5-24); Creatinine* 1.0 mg/dL (0.5-1.5); Est. Creatinine Clearance* 108.86; Estimated Glomerular Filt Rate 98 ml/min
[2025-03-14 23:16] LABS: Alkaline Phosphatase* 49 U/L (40-150); Anion Gap 7 mEq/L (7-15); Bilirubin Total* 0.5 mg/dL (0.1-1.5); Calcium* 8.7 mg/dL (8.4-10.6); Carbon Dioxide* 26 mmol/L (20-32); Glucose* 90 mg/dL (60-115); Total Protein* 6.9 g/dL (6.0-8.3)
[2025-03-14 23:31] VITALS: BP 110/73; PULSE 64; RESP 18; TEMP 36.9; O2SAT 97
[2025-03-14 23:50] VITALS: TEMP 36.9
[2025-03-14 23:58] VITALS: BP 132/70; PULSE 84; RESP 18; TEMP 36.9; O2SAT 97
[2025-03-15 00:03] VITALS: BP 132/70; PULSE 84; RESP 18; TEMP 36.9
== END 2025-03-15 00:03 | disposition home or self-care (01) ==
PROVIDERS: Emergency Provider Emergency Medicine
DX: M79.632 Pain in left forearm (principal)
CPT/HCPCS: 36415; 80053; 85025; 86140; 87040; 94761; 96365; 96375; 99284; 99285; J0696; J1885